=== PATIENT | female | born 1940 | race Caucasian/White ===

== ENCOUNTER 2016-11-10 09:23 | Outpatient (RCR) | payer MEDICARE, OTHER ==
[2016-06-16 11:39] VITALS: BP 122/62
[~2016-11-10 09:23] MED LIST: AMOXICILLIN875 MG PO; ATIVAN 0.50.5 MG/TAB PO; ATIVAN0.5 MG PO; CELEXA 20MG20 MG/TA1 PO; CITALOPRAM40 MG PO; CLARITIN LIQUI-10 MG PO; CLONIDINE0.1 MG PO; COZAAR 25MG25 MG/TAB PO; COZAAR50 MG PO; FLEXERIL 1010 MG/TAB PO; GOOD SENSE ASPI81 M1 PO; HYDROCHLOR50 MG PO; HYDROCHLOROTH12.5 M1 PO; LAMOTRIGINE25 M1 PO; LIP PO; LIPITOR 80MG80 MG PO; LOPRESSOR 225 MG/TAB PO; METOPROLOL SUC100 MG PO; NITROSTAT0.4 MG/TAB SL; PLAVIX 75MG TAB75 MG PO; SINUS RINSE RE1 EACH NAS; SPIRIVA INH IH; VALIUM5 M1 PO; ZOFRAN4 M2 PO
[2016-11-20] MEDS ORDERED: HCTZ 25MG25 MG PO (18:13)
[2016-11-20] MEDS ORDERED: ASPIRIN E.C. 8181 MG PO (18:15)
[2016-11-20] MEDS ORDERED: MELOXICAM15 MG PO (18:15)
[2016-11-20] MEDS ORDERED: PROTONIX TR40 M1 PO (20:17)
== END 2016-12-05 07:41 | disposition home or self-care (01) ==
LOC: PT 09:23
DX: M54.5 Low back pain (principal); M51.37 Other intervertebral disc degeneration, lumbosacral region; M54.16 Radiculopathy, lumbar region; M48.07 Spinal stenosis, lumbosacral region

== ENCOUNTER 2016-11-20 17:38 | Emergency (ER) | payer MEDICARE, OTHER ==
[2016-11-20] MEDS ORDERED: HCTZ 25MG25 MG PO (18:13)
[2016-11-20] MEDS ORDERED: MELOXICAM15 MG PO (18:15)
[2016-11-20] MEDS ORDERED: ASPIRIN E.C. 8181 MG PO (18:15)
[2016-11-20] MEDS ORDERED: PROTONIX TR40 M1 PO (20:17)
[2016-11-20 20:50] VITALS: BP 117/69
== END 2016-11-20 20:50 | disposition home or self-care (01) ==
LOC: ED 17:38
DX: R10.13 Epigastric pain (principal); K29.00 Acute gastritis without bleeding
CPT/HCPCS: C9113; J2405; J7030

== ENCOUNTER 2018-01-09 07:08 | Emergency (ER) | payer MEDICARE, OTHER ==
[~2018-01-09 07:08] MED LIST changes: +ASPIRIN E.C. 8181 MG PO; +HCTZ 25MG25 MG PO; +MELOXICAM15 MG PO; +PROTONIX TR40 M1 PO; +STIOLTO RESPIMAT4 GM IH
[2018-01-09] MEDS ORDERED: FLUOCINONIDE15 G2 TOP (07:40)
[2018-01-09] MEDS ORDERED: SYMBICORT1 AE3 IH (07:44)
[2018-01-09] MEDS ORDERED: INCRUSE EL62.5 MCG/A IH (07:45)
[2018-01-09] MEDS ORDERED: CBD TOP (07:47)
[2018-01-09 08:10] LABS: EOS # 0.1 (0.04-0.40); EOS % 1.2 % (1.0-5.0); HEMATOCRIT 42.2 % (37.0-47.0); HEMOGLOBIN 13.6 g/dL (12.5-16.0); LYMPH# 1.4 (1.50-4.00); MEAN CELL VOLUME 93 fl (78-100); MEAN CORPUSCULAR HEMOGLOBIN 30 pg (27-31); MEAN CORPUSCULAR HGB CONC 32 g/dL (33-37); MEAN PLATELET VOLUME 9.2 fl (7.4-10.4); MONO # 0.6 (0.20-0.80); NEU # 4.7 (1.40-6.50); PLATELET COUNT 257 K/mm3 (130-400); RED BLOOD COUNT 4.55 M/mm3 (4.10-5.30); RED CELL DISTRIBUTION WIDTH 14.6 % (11.5-14.5); WHITE BLOOD COUNT 6.8 K/mm3 (4.8-10.8)
[2018-01-09 08:22] LABS: ALBUMIN 3.8 g/dL (3.5-5.0); BUN/CREATININE RATIO 27.9 (6.0-26.0); CALCIUM 9.1 mg/dL (8.4-10.2); POTASSIUM 3.5 mmol/L (3.6-5.0); TOTAL BILIRUBIN 0.5 mg/dL (0.2-1.3); TOTAL PROTEIN 6.8 g/dL (6.3-8.2)
[2018-01-09 09:26] LABS: PH-URINE 6.5 (5.0 - 8.0); URINE APPEARANCE HAZY; URINE BILIRUBIN NEGATIVE (NEGATIVE); URINE BLOOD NEGATIVE (NEGATIVE); URINE COLOR LT YELLOW; URINE GLUCOSE NEGATIVE (NEGATIVE); URINE KETONE NEGATIVE (NEGATIVE); URINE LEUKOCYTE ESTERASE NEGATIVE (NEGATIVE); URINE NITRATE NEGATIVE (NEGATIVE); URINE PROTEIN(semi-quant) NEGATIVE (NEGATIVE); URINE UROBILINOGEN NORMAL (NORMAL); URINE WBC 0-1 /hpf (0-3)
[2018-01-09 10:12] VITALS: BP 150/76
== END 2018-01-09 10:22 | disposition home or self-care (01) ==
LOC: ED 07:08
PROVIDERS: Family Medicine
DX: R53.81 Other malaise (principal); F41.9 Anxiety disorder, unspecified; R42 Dizziness and giddiness; I25.10 Atherosclerotic heart disease of native coronary artery without angina pectoris; J44.9 Chronic obstructive pulmonary disease, unspecified; Z79.02 Long term (current) use of antithrombotics/antiplatelets; Z87.891 Personal history of nicotine dependence; Z79.82 Long term (current) use of aspirin; Z79.899 Other long term (current) drug therapy

== ENCOUNTER → 2018-01-25 | Outpatient (CLI) | payer MEDICARE, OTHER ==
[2018-01-09 10:12] VITALS: BP 150/76
[~2018-01-25] MED LIST changes: +CBD TOP; +FLUOCINONIDE15 G2 TOP; +INCRUSE EL62.5 MCG/A IH; +SYMBICORT1 AE3 IH
== END ==
LOC: LAB 08:57
DX: E87.6 Hypokalemia (principal)

== ENCOUNTER → 2018-04-26 | Outpatient (CLI) | payer MEDICARE, OTHER ==
[2018-04-26 13:56] LABS: ALBUMIN 3.6 g/dL (3.5-5.0); POTASSIUM 3.9 mmol/L (3.6-5.0); TOTAL BILIRUBIN 0.5 mg/dL (0.2-1.3); TOTAL PROTEIN 6.7 g/dL (6.3-8.2)
== END ==
LOC: LAB 07:06
PROVIDERS: Internal Medicine
DX: I10 Essential (primary) hypertension (principal)

== ENCOUNTER → 2018-04-28 | Outpatient (CLI) | payer MEDICARE, OTHER | LOC: MAMMO 13:32 | DX: Z12.31 Encounter for screening mammogram for malignant neoplasm of breast (principal) ==

== ENCOUNTER 2019-03-01 12:57 | Emergency (ER) | payer MEDICARE, OTHER ==
[~2019-03-01] VITALS: Wt 103.5 kg
[~2019-03-01 12:57] MED LIST changes: +CLOPIDOGREL PO; -METOPROLOL SUC100 MG PO; +METOPROLOL TAR100 M1 PO; -PLAVIX 75MG TAB75 MG PO
[2019-03-01] MEDS ORDERED: ELIQUIS5 MG PO (13:18)
[2019-03-01] MEDS ORDERED: SERTRALINE50 MG PO (13:19)
[2019-03-01 14:06] VITALS: BP 113/62
[2019-03-01] MEDS ORDERED: CEPHALEXIN500 M2 PO (14:12)
== END 2019-03-01 14:22 | disposition home or self-care (01) ==
LOC: ED 12:57
DX: L03.031 Cellulitis of right toe (principal); L60.0 Ingrowing nail; I25.2 Old myocardial infarction; E78.5 Hyperlipidemia, unspecified; I10 Essential (primary) hypertension; F41.9 Anxiety disorder, unspecified; Z86.718 Personal history of other venous thrombosis and embolism; Z90.49 Acquired absence of other specified parts of digestive tract; Z90.710 Acquired absence of both cervix and uterus; Z95.5 Presence of coronary angioplasty implant and graft; Z87.891 Personal history of nicotine dependence; Z98.890 Other specified postprocedural states

== ENCOUNTER 2019-03-25 14:23 | Emergency (ER) | payer MEDICARE, OTHER ==
[~2019-03-25 14:23] MED LIST changes: +CEPHALEXIN500 M2 PO; +ELIQUIS5 MG PO; +SERTRALINE HYD100 MG PO
[2019-03-25 15:17] LABS: EOS # 0.1 (0.04-0.40); EOS % 1.6 % (1.0-5.0); HEMATOCRIT 40.2 % (37.0-47.0); HEMOGLOBIN 12.6 g/dL (12.5-16.0); LYMPH# 1.4 (1.50-4.00); MEAN CELL VOLUME 92 fl (78-100); MEAN CORPUSCULAR HEMOGLOBIN 29 pg (27-31); MEAN CORPUSCULAR HGB CONC 31 g/dL (33-37); MEAN PLATELET VOLUME 9.7 fl (7.4-10.4); MONO # 0.7 (0.20-0.80); NEU # 5.1 (1.40-6.50); PLATELET COUNT 261 K/mm3 (130-400); RED BLOOD COUNT 4.35 M/mm3 (4.10-5.30); RED CELL DISTRIBUTION WIDTH 14.1 % (11.5-14.5); WHITE BLOOD COUNT 7.3 K/mm3 (4.8-10.8)
[2019-03-25 15:27] LABS: ALBUMIN 3.8 g/dL (3.4-4.8)
[2019-03-25 15:28] LABS: POTASSIUM 3.6 mmol/L (3.5-5.1)
[2019-03-25 15:29] LABS: CALCIUM 9.3 mg/dL (8.3-10.5)
[2019-03-25 15:30] LABS: TOTAL PROTEIN 6.8 g/dL (6.2-8.1)
[2019-03-25 15:32] LABS: TOTAL BILIRUBIN 0.4 mg/dL (0.2-1.2)
[2019-03-25] MEDS ORDERED: NORCO 325 MG-51 TA1 PO (15:49)
[2019-03-25] MEDS ORDERED: VALACYCLOVIR1 GM PO (15:49)
[2019-03-25 16:13] VITALS: BP 138/68
== END 2019-03-25 16:23 | disposition home or self-care (01) ==
LOC: ED 14:23
PROVIDERS: Nurse Practitioner Primary Care
DX: B02.9 Zoster without complications (principal); F32.9 Major depressive disorder, single episode, unspecified; I25.2 Old myocardial infarction; I10 Essential (primary) hypertension; J44.9 Chronic obstructive pulmonary disease, unspecified; Z87.442 Personal history of urinary calculi; Z86.718 Personal history of other venous thrombosis and embolism; Z95.9 Presence of cardiac and vascular implant and graft, unspecified; Z90.49 Acquired absence of other specified parts of digestive tract; Z90.89 Acquired absence of other organs; Z90.710 Acquired absence of both cervix and uterus

== ENCOUNTER 2019-03-27 10:07 | Observation (INO) | payer MEDICARE, OTHER ==
[~2019-03-27] VITALS: Ht 165.1 cm; Wt 101.5 kg
[~2019-03-27 10:07] MED LIST changes: +NORCO 325 MG-51 TA1 PO; +VALACYCLOVIR1 GM PO
[2019-03-27 12:13] VITALS: BP 145/76
[2019-03-27 12:23] LABS: HEMATOCRIT 40.4 % (37.0-47.0); MEAN PLATELET VOLUME 10.4 fl (7.4-10.4); RED BLOOD COUNT 4.41 M/mm3 (4.10-5.30); RED CELL DISTRIBUTION WIDTH 14.3 % (11.5-14.5); WHITE BLOOD COUNT 6.5 K/mm3 (4.8-10.8)
[2019-03-27 12:27] LABS: ALBUMIN 3.8 g/dL (3.4-4.8); POTASSIUM 3.8 mmol/L (3.5-5.1)
[2019-03-27 12:29] LABS: CALCIUM 9.5 mg/dL (8.3-10.5)
[2019-03-27 12:30] LABS: TOTAL PROTEIN 6.9 g/dL (6.2-8.1)
[2019-03-27 12:32] LABS: TOTAL BILIRUBIN 0.5 mg/dL (0.2-1.2)
[2019-03-27 15:15] VITALS: BP 106/64
[2019-03-27 19:03] VITALS: BP 109/65
[2019-03-27 23:00] VITALS: BP 113/61
[2019-03-28 03:26] VITALS: BP 132/72
[2019-03-28 06:03] VITALS: BP 123/66
[2019-03-28 11:00] VITALS: BP 156/64
[2019-03-28] MEDS ORDERED: GABAPENTIN TAB600 MG PO (12:09)
[2019-03-28] MEDS ORDERED: PANTOPRAZOLE SO40 MG PO (12:10)
[2019-03-28] MEDS ORDERED: SOLU-MEDRO125 MG/21 IV (12:10)
[2019-03-28] MEDS ORDERED: HEALTHYLAX17 GM/Dose PO (12:10)
== END 2019-03-28 17:04 | disposition other institution (70) ==
LOC: ED 10:07 → MED/SURG 11:33
PROVIDERS: ADMIT Family Medicine
DX: B02.9 Zoster without complications (principal); I10 Essential (primary) hypertension; J44.9 Chronic obstructive pulmonary disease, unspecified; I25.10 Atherosclerotic heart disease of native coronary artery without angina pectoris; J30.9 Allergic rhinitis, unspecified; E66.9 Obesity, unspecified; F32.9 Major depressive disorder, single episode, unspecified; E78.5 Hyperlipidemia, unspecified; Z79.02 Long term (current) use of antithrombotics/antiplatelets; Z79.82 Long term (current) use of aspirin; Z79.01 Long term (current) use of anticoagulants; Z87.891 Personal history of nicotine dependence; Z88.8 Allergy status to other drugs, medicaments and biological substances
CPT/HCPCS: G0378; J2930; J7030

== ENCOUNTER 2019-03-28 11:59 | Inpatient (IN) | payer MEDICARE, OTHER ==
[~2019-03-28] VITALS: Ht 165.1 cm; Wt 101.5 kg
[2019-03-28] MEDS ORDERED: GABAPENTIN TAB600 MG PO (12:09)
[2019-03-28] MEDS ORDERED: SOLU-MEDRO125 MG/21 IV (12:10)
[2019-03-28] MEDS ORDERED: HEALTHYLAX17 GM/Dose PO (12:10)
[2019-03-28] MEDS ORDERED: PANTOPRAZOLE SO40 MG PO (12:10)
[2019-03-28 16:13] VITALS: BP 112/57
[2019-03-28 17:54] LABS: HEMATOCRIT 38.4 % (37.0-47.0); HEMOGLOBIN 12.1 g/dL (12.5-16.0); RED BLOOD COUNT 4.17 M/mm3 (4.10-5.30); RED CELL DISTRIBUTION WIDTH 14.3 % (11.5-14.5); WHITE BLOOD COUNT 13.5 K/mm3 (4.8-10.8)
[2019-03-28 18:00] VITALS: BP 153/40
[2019-03-28 18:02] LABS: ALBUMIN 3.7 g/dL (3.4-4.8); POTASSIUM 3.6 mmol/L (3.5-5.1)
[2019-03-28 18:03] LABS: CALCIUM 8.8 mg/dL (8.3-10.5)
[2019-03-28 18:04] LABS: TOTAL PROTEIN 6.7 g/dL (6.2-8.1)
[2019-03-28 18:06] LABS: TOTAL BILIRUBIN 0.3 mg/dL (0.2-1.2)
[2019-03-28 22:00] VITALS: BP 120/56
[2019-03-29 06:09] VITALS: BP 143/74
[2019-03-29 18:40] VITALS: BP 138/37
[2019-03-30 06:06] LABS: HEMATOCRIT 38.5 % (37.0-47.0); HEMOGLOBIN 12.2 g/dL (12.5-16.0); MEAN CELL VOLUME 92 fl (78-100); MEAN CORPUSCULAR HEMOGLOBIN 29 pg (27-31); MEAN CORPUSCULAR HGB CONC 32 g/dL (33-37); PLATELET COUNT 247 K/mm3 (130-400); RED BLOOD COUNT 4.18 M/mm3 (4.10-5.30); RED CELL DISTRIBUTION WIDTH 14.7 % (11.5-14.5); WHITE BLOOD COUNT 10.7 K/mm3 (4.8-10.8)
[2019-03-30 06:17] VITALS: BP 171/85
[2019-03-30 06:29] LABS: LYMPHOCYTE 13 % (20-51); NEUTROPHILS 87 % (42-75)
[2019-03-30 06:33] LABS: ALBUMIN 3.5 g/dL (3.4-4.8); POTASSIUM 3.4 mmol/L (3.5-5.1)
[2019-03-30 06:34] LABS: CALCIUM 8.5 mg/dL (8.3-10.5)
[2019-03-30 06:35] LABS: TOTAL PROTEIN 6.3 g/dL (6.2-8.1)
[2019-03-30 06:37] LABS: TOTAL BILIRUBIN 0.4 mg/dL (0.2-1.2)
[2019-03-30] MEDS ORDERED: GABAPENTIN TAB600 MG PO (09:16)
[2019-03-30] MEDS ORDERED: NORCO 325 MG-51 TA1 PO (09:16)
[2019-03-30] MEDS ORDERED: VALTREX1 GM PO (09:22)
[2019-03-30] MEDS ORDERED: PREDNISONE10 MG PO (09:22)
[2019-03-30 10:52] VITALS: BP 141/67
== END 2019-03-30 11:22 | disposition home or self-care (01) | DRG 125 ==
LOC: MED/SURG 11:59
PROVIDERS: ADMIT Family Medicine
DX: B02.30 Zoster ocular disease, unspecified (principal); I10 Essential (primary) hypertension; J44.9 Chronic obstructive pulmonary disease, unspecified; I25.10 Atherosclerotic heart disease of native coronary artery without angina pectoris; E66.9 Obesity, unspecified; Z68.37 Body mass index [BMI] 37.0-37.9, adult; E78.5 Hyperlipidemia, unspecified; Z87.891 Personal history of nicotine dependence; Z88.8 Allergy status to other drugs, medicaments and biological substances; J30.9 Allergic rhinitis, unspecified; F32.9 Major depressive disorder, single episode, unspecified
CPT/HCPCS: J0133; J2930; J7030

== ENCOUNTER → 2019-07-25 | Outpatient (CLI) | payer MEDICARE, OTHER ==
[~2019-07-25] MED LIST changes: +GABAPENTIN TAB600 MG PO; +HEALTHYLAX17 GM/Dose PO; +PANTOPRAZOLE SO40 MG PO; +PREDNISONE10 MG PO; +SOLU-MEDRO125 MG/21 IV; +VALTREX1 GM PO
== END ==
LOC: MAMMO 09:15
DX: Z12.31 Encounter for screening mammogram for malignant neoplasm of breast (principal)

== ENCOUNTER → 2019-07-25 | Outpatient (CLI) | payer MEDICARE, OTHER ==
[2019-07-25 09:38] LABS: EOS # 0.2 (0.04-0.40); EOS % 3.1 % (1.0-5.0); HEMATOCRIT 42.8 % (37.0-47.0); HEMOGLOBIN 13.4 g/dL (12.5-16.0); LYMPH# 1.4 (1.50-4.00); MEAN CELL VOLUME 94 fl (78-100); MEAN CORPUSCULAR HEMOGLOBIN 29 pg (27-31); MEAN CORPUSCULAR HGB CONC 31 g/dL (33-37); MEAN PLATELET VOLUME 9.6 fl (7.4-10.4); MONO # 0.7 (0.20-0.80); NEU # 4.7 (1.40-6.50); PLATELET COUNT 254 K/mm3 (130-400); RED BLOOD COUNT 4.56 M/mm3 (4.10-5.30); RED CELL DISTRIBUTION WIDTH 13.7 % (11.5-14.5)
[2019-07-25 09:50] LABS: ALBUMIN 4.1 g/dL (3.4-4.8); POTASSIUM 3.8 mmol/L (3.5-5.1)
[2019-07-25 09:51] LABS: CALCIUM 9.8 mg/dL (8.3-10.5)
[2019-07-25 09:53] LABS: TOTAL PROTEIN 7.3 g/dL (6.2-8.1)
[2019-07-25 09:54] LABS: TOTAL BILIRUBIN 0.6 mg/dL (0.2-1.2)
== END ==
LOC: LAB 08:34
PROVIDERS: Internal Medicine
DX: I10 Essential (primary) hypertension (principal); R60.9 Edema, unspecified

== ENCOUNTER → 2020-08-07 | Outpatient (CLI) | payer MEDICARE, OTHER | LOC: MAMMO 14:41 | DX: Z12.31 Encounter for screening mammogram for malignant neoplasm of breast (principal) ==

== ENCOUNTER → 2021-09-11 | Outpatient (CLI) | payer MEDICARE, OTHER | LOC: MAMMO 14:28 | DX: Z12.31 Encounter for screening mammogram for malignant neoplasm of breast (principal) ==

== ENCOUNTER 2021-11-11 12:33 | Emergency (ER) | payer MEDICARE, OTHER ==
[2021-11-11 12:44] VITALS: BP 125/77
[2021-11-11] MEDS ORDERED: PREDNISONE20 M1 PO (13:04)
== END 2021-11-11 13:10 | disposition home or self-care (01) ==
LOC: ED 12:33
DX: L30.9 Dermatitis, unspecified (principal)

== ENCOUNTER 2022-02-11 09:33 | Emergency (ER) | payer MEDICARE, OTHER ==
[~2022-02-11] VITALS: Ht 167.6 cm; Wt 101.2 kg
[~2022-02-11 09:33] MED LIST changes: +PREDNISONE20 M1 PO
[2022-02-11] MEDS ORDERED: CEPHALEXIN500 M1 PO (09:55)
[2022-02-11] MEDS ORDERED: LORAZEPAM0.5 M1 PO (09:56)
[2022-02-11] MEDS ORDERED: METRONIDAZOLE0.75% TP (09:56)
[2022-02-11] MEDS ORDERED: ATORVASTATIN CA80 MG PO (09:58)
[2022-02-11] MEDS ORDERED: LOSARTAN POTAS100 MG PO (10:00)
[2022-02-11 10:55] LABS: BASO # 0.03 K/mm3 (0.02-0.10); EOS # 0.11 K/mm3 (0.04-0.40); EOS % 1.3 % (1.0-5.0); HEMATOCRIT 41.7 % (37.0-47.0); HEMOGLOBIN 13.3 g/dL (12.5-16.0); LYMPH# 1.26 K/mm3 (1.50-4.00); MEAN CELL VOLUME 91 fl (78-100); MEAN CORPUSCULAR HEMOGLOBIN 29 pg (27-31); MEAN CORPUSCULAR HGB CONC 32 g/dL (33-37); MEAN PLATELET VOLUME 10.2 fl (7.4-10.4); MONO # 0.93 K/mm3 (0.20-0.80); NEU # 6.13 K/mm3 (1.40-6.50); PLATELET COUNT 246 K/mm3 (130-400); RED BLOOD COUNT 4.57 M/mm3 (4.10-5.30); RED CELL DISTRIBUTION WIDTH 13.5 % (11.5-14.5); WHITE BLOOD COUNT 8.5 K/mm3 (4.8-10.8)
[2022-02-11 11:09] LABS: POTASSIUM 3.6 mmol/L (3.5-5.1); SODIUM 139 mmol/L (136-145)
[2022-02-11 11:10] LABS: ALBUMIN 3.8 g/dL (3.4-4.8); CALCIUM 9.8 mg/dL (8.3-10.5)
[2022-02-11 11:12] LABS: TOTAL PROTEIN 6.9 g/dL (6.2-8.1)
[2022-02-11 11:13] LABS: CARBON DIOXIDE 28 mmol/L (23-31); GLUCOSE 79 mg/dL (65-105); TOTAL BILIRUBIN 0.6 mg/dL (0.2-1.2)
[2022-02-11 11:17] LABS: AST-SGOT 21 U/L (5-34)
[2022-02-11 11:20] LABS: ALT/SGPT 17 U/L (0-55)
[2022-02-11 11:21] LABS: LIPASE 26 U/L (8-78)
[2022-02-11 11:38] LABS: TROPONIN-I < 0.030 ng/mL (<0.030)
[2022-02-11 11:59] VITALS: BP 148/76
== END 2022-02-11 11:59 | disposition home or self-care (01) ==
LOC: ED 09:33
PROVIDERS: Physician Assistant
DX: I10 Essential (primary) hypertension (principal); F41.9 Anxiety disorder, unspecified; Z87.891 Personal history of nicotine dependence; Z95.5 Presence of coronary angioplasty implant and graft

== ENCOUNTER → 2024-06-25 | Outpatient (CLI) | payer MEDICARE, OTHER ==
[~2024-06-25] MED LIST changes: +ATORVASTATIN CA80 MG PO; +CEPHALEXIN500 M1 PO; +LORAZEPAM0.5 M1 PO; +LOSARTAN POTAS100 MG PO; +METRONIDAZOLE0.75% TP
[2024-06-25 09:41] LABS: BASO # 0.01 K/mm3 (0.02-0.10); EOS # 0.02 K/mm3 (0.04-0.40); EOS % 0.3 % (1.0-5.0); HEMATOCRIT 46.9 % (37.0-47.0); HEMOGLOBIN 15.3 g/dL (12.5-16.0); LYMPH# 0.78 K/mm3 (1.50-4.00); MEAN CELL VOLUME 91 fl (78-100); MEAN CORPUSCULAR HEMOGLOBIN 30 pg (27-31); MEAN CORPUSCULAR HGB CONC 33 g/dL (33-37); MEAN PLATELET VOLUME 9.2 fl (7.4-10.4); MONO # 0.67 K/mm3 (0.20-0.80); PLATELET COUNT 230 K/mm3 (130-400); RED BLOOD COUNT 5.17 M/mm3 (4.10-5.30); RED CELL DISTRIBUTION WIDTH 13.5 % (11.5-14.5)
[2024-06-25 09:48] LABS: CALCIUM 9.6 mg/dL (8.3-10.5)
[2024-06-25 09:49] LABS: TOTAL PROTEIN 7.4 g/dL (6.2-8.1)
[2024-06-25 09:51] LABS: TOTAL BILIRUBIN 0.7 mg/dL (0.2-1.2)
[2024-06-25 09:57] LABS: PH-URINE 5.5 (5.0 - 8.0); URINE APPEARANCE TURBID (CLEAR); URINE COLOR RED (YELLOW)
[2024-06-25 09:58] LABS: URINE BILIRUBIN 3+ (NEGATIVE); URINE BLOOD 3+ (NEGATIVE); URINE GLUCOSE NEGATIVE (NEGATIVE); URINE KETONE 1+ (NEGATIVE); URINE LEUKOCYTE ESTERASE 3+ (NEGATIVE); URINE NITRATE NEGATIVE (NEGATIVE); URINE PROTEIN(semi-quant) 3+ (NEGATIVE)
[2024-06-25 09:59] LABS: URINE WBC 16-30 /hpf (0-3)
== END ==
LOC: LAB 09:30
PROVIDERS: Nurse Practitioner Family
DX: R19.7 Diarrhea, unspecified (principal); R31.0 Gross hematuria